=== PATIENT | male | born 1965 | race Caucasian/White ===

== ENCOUNTER 2023-11-08 00:02 | Emergency (ER) | payer BC, MEDICAID ==
[~2023-11-08] VITALS: Ht 175.3 cm; Wt 102.3 kg
[2023-11-08 00:04] VITALS: TEMP 98.3
[2023-11-08] MEDS: normal saline 1000ml 1,000 ML IV ONE (00:27)
[2023-11-08] MEDS: LORazepam 2 mg/ml vial IV ONE (00:28)
[2023-11-08] MEDS: ondansetron/PF 4mg/2ml inj IV ONE (00:29)
[2023-11-08] MEDS: metoprolol succinate 25mg (24-HOUR) SR. Tablet PO ONE (00:52)
[2023-11-08 01:14] LABS: BASOPHILS % (AUTO) 0.3 % (0-1); EOSINOPHILS % (AUTO) 0 % (0-6); HEMATOCRIT 48.5 % (42.0-52.0); HEMOGLOBIN 16.6 g/dl (14.0-17.9); LYMPHOCYTES # (AUTO) 0.5 X10'3 (1.1-4.8); LYMPHOCYTES % (AUTO) 3.3 % (21-51); MEAN CORPUSCULAR HEMOGLOBIN 32.6 PG (27.0-31.0); MEAN CORPUSCULAR HGB CONC 34.1 g/dL (33.0-36.5); MEAN CORPUSCULAR VOLUME 95.5 FL (78-98); MEAN PLATELET VOLUME 8.6 FL (7.4-10.4); MONOCYTES # (AUTO) 0.8 X10'3 (0-0.9); MONOCYTES % (AUTO) 5.6 % (2-12); NEUTROPHILS # (AUTO) 12.7 X10'3 (1.8-7.7); NEUTROPHILS % (AUTO) 90.8 % (42-75); PLATELET COUNT 224 X10'3 (140-440); RED BLOOD COUNT 5.08 X10'6 (4.70-6.10); RED CELL DISTRIBUTION WIDTH 15.4 % (11.5-14.5)
[2023-11-08] MEDS: LIDOcaine 2% Viscous 15ml cup MM ONE (01:14)
[2023-11-08 01:30] LABS: ALANINE AMINOTRANSFERASE 87 U/L (12-78); ALBUMIN 3.5 G/DL (3.4-5.0); ALBUMIN/GLOBULIN RATIO 0.8 (1.1-1.5); ALKALINE PHOSPHATASE 104 IU/L (46-116); ANION GAP 10 (8-16); ASPARTATE AMINO TRANSFERASE 85 U/L (10-37); BILIRUBIN,TOTAL 1.5 MG/DL (0.1-1.0); BLOOD UREA NITROGEN 10 MG/DL (7-18); BUN/CREATININE RATIO 8.5 (10.0-20.0); CALCIUM 8.9 MG/DL (8.5-10.1); CHLORIDE 97 MMOL/L (99-107); CREATININE 1.17 MG/DL (0.60-1.10); GLUCOSE 161 MG/DL (70-104); POTASSIUM 3.4 MMOL/L (3.5-5.1); SODIUM 137 MMOL/L (135-145); TOTAL CARBON DIOXIDE 30.5 MMOL/L (24-32); TOTAL PROTEIN 7.9 G/DL (6.4-8.2); eCRCL 67 ML/MIN; eGFR 64 ML/MIN
[2023-11-08] MEDS ORDERED: iohexol 300mg/ml 100ml inj. ONE (01:40)
[2023-11-08] MEDS: mag hydrox/Alum hydrox/simeth 30ml oral suspension PO ONE (02:08)
[2023-11-08] MEDS: LIDOcaine 2% Viscous 15ml cup MM PRN (02:08)
[2023-11-08 02:57] LABS: LIPASE 19 U/L (16-77)
[2023-11-08] MEDS: pantoprazole 40mg Tablet.DR PO SCH (03:13)
[2023-11-08 03:19] VITALS: BP 187/92; PULSE 63; RESP 18; O2SAT 98
[2023-11-10] MEDS ORDERED: NO HOME MEDS (09:21)
== END 2023-11-08 03:24 | disposition home or self-care (01) ==
LOC: ER 00:04
DX: R11.10 Vomiting, unspecified (principal)
CPT/HCPCS: 36415; 74177; 80053; 83690; 85025; 96361; 96374; 96375; 99285; J2060; J2405; J7030; Q9967